=== PATIENT | female | born 1990 | race Caucasian/White ===

== ENCOUNTER 2017-01-20 01:27 | Emergency (ER) | payer OTHER ==
[2017-01-20 03:10] VITALS: BP 121/77; PULSE 71; RESP 16; TEMP 98.6; O2SAT 100
[2017-01-20] MEDS ORDERED: IBUP800T23 PO (03:37)
[2017-01-20] MEDS ORDERED: HYDR-3516 PO (03:37)
--- NOTE | 2017-01-20 04:00 | PD ---
HPI Chief Complaint: Pain: Acute or Chronic Time Seen by Provider: 03:54 Travel History International Travel<30 days: No Contact w/Intl Traveler<30days: No Traveled to known affect area: No History of Present Illness HPI 26-year-old female presents emergency Department with complaints of pain in her left foot after an injury slipping in the shower on 01/16/17. She was seen at the emergency department at [facility]. The patient had an x-ray which confirmed fractures of her third toe. She is placed in a postop shoe, chuck taping given prescription for Motrin 800 and Lortab 5. She' s been taken the Motrin but she does not like to take the Lortab because when she takes one it makes her very sleepy and she sleeps all day. She states that she would like something to support her foot because it hurts when she walks on it or when she coughs. She states that she has a lot of pain in her foot. She states that she does not have a primary care doctor. She also complains that she has some lower back discomfort from the fall. She denies any acute bowel or bladder changes. Symptoms are moderate becoming more severe with coughing or walking. PFSH Past Medical History Medical History: Denies Significant Hx Diminished Hearing: No Tetanus Vaccination: < 5 Years ?: Not LMP: 1 week Past Surgical History Surgical History: No Previous Surgery Social History Alcohol Use: No Tobacco Use: No Substance Use: No Allergies-Medications (Allergen,Severity, Reaction): Coded Allergies: No Known Allergies (Unverified , 01/20/17) Reported Meds & Prescriptions Reported Meds & Active Scripts Active Reported Hydrocodone-Acetaminophen 5-325 mg Tab 1 Tab PO Q6H PRN Ibuprofen 800 Mg Tab 800 Mg PO Q8H PRN Review of Systems Except as stated in HPI: all other systems reviewed are Neg Physical Exam Narrative GENERAL: This is a well-nourished, well-developed patient, in no apparent distress. SKIN: No rashes, ecchymoses or lesions. Warm and dry. HEAD: Atraumatic. Normocephalic. EYES: PERRL, EOMI, no discharge or injection. No scleral icterus. EARS: Clear NOSE: Nasal turbinates appear normal. THROAT: Mucosa pink and moist. Airway patent. NECK: Trachea midline. supple, moves head freely. LUNGS: Clear to auscultation. No wheezes Rales or rhonchi. CV: Regular in rhythm. ABDOMEN: Soft nontender. Back: No central bony tenderness to palpation. Patient complains some mild paraspinal muscle tenderness. EXT: No clubbing cyanosis. Examination of the left foot reveals pain and swelling to the third and fourth toe. She has ecchymosis to the proximal third toe. The skin is intact. She has intact gross sensation and Refill. There is some tenderness to the distal third and fourth metatarsal as well. No edema. Good pulses. No pain in the big toe her little toe. No pain in the heel or Achilles. No pain in the ankle. Data Data Last Documented VS Vital Signs Date Time Temp Pulse Resp B/P Pulse Ox O2 Delivery O2 Flow Rate FiO2 01/20/17 03:10 98.6 71 16 121/77 100 MDM Medical Decision Making Medical Screen Exam Complete: Yes Emergency Medical Condition: Yes Medical Record Reviewed: Yes Differential Diagnosis MDM: High Differential diagnoses: Fracture, sprain, strain, dislocation, contusion, neurovascular injury Narrative Course The patient was given a prescription for Lortab 5 No. 12 on 01/16/17. She still has 12 tablets in the bottle. She has not been taking her Lortab. The patient also has only taken 3 Motrin tablets since the injury as well. She still has a large number of them in the bottle. I explained to the patient that she needs to take her medications as prescribed. She needs to elevate her foot and chuck tape her toes together and she was advised. I explained her there is no splint or a fixation device other than chuck taping. She is to ice her foot down for any acute swelling and pain. She also is to use her crutches. Diagnosis Primary Impression: Fracture of left toe Qualified Code: S92.912D - Closed nondisplaced fracture of phalanx of toe of left foot with routine healing, unspecified toe, subsequent encounter Patient Instructions: General Instructions Additional Instructions: Rest. Elevation. Ice packs for the next 3 days. Chuck tape and postop shoe. No weight-bearing and then progress to weight-bearing as tolerated. Medications as directed Follow-up with an orthopedist or your doctor in one week. Return to the ER if any problems Med/Other Pt SpecificInfo: No Change to Meds Disposition: 01 DISCHARGE HOME Condition: Stable Juan Foreman Jan 20, 2017 04:00
== END 2017-01-20 04:22 | disposition home or self-care (01) ==
LOC: NEPD 01:27
DX: S92.502A Displaced unspecified fracture of left lesser toe(s), initial encounter for closed fracture (principal); W18.2XXA Fall in (into) shower or empty bathtub, initial encounter; Z79.899 Other long term (current) drug therapy
CPT/HCPCS: 99283